=== PATIENT | male | born 1965 | race Caucasian/White ===

== ENCOUNTER 2017-05-03 21:41 | Emergency (ER) | payer OTHER ==
--- NOTE | ~2017-05-03 | CR112 ---
[facility] A Service of [facility] & [facility] RADIOLOGY TEXT RESULTS PATIENT: MANUEL SHER LOCATION: [facility] : 67 UNIT #: [id number] AGE: [address]: Christiano Baum MD SEX: M ORDER DR: [id number] [facility] [address] [place], [place] [address] [id number] E MR#: [id number] Acc #: [id number] NAME: MANUEL SHER : 1965 SEX: M STUDY DATE/TIME: 05/03/2017 22:49 UNIT: [facility] ROOM: STUDY DESCRIPTION: CR Finger 2 View 4Th Lt Attending Physician: Christiano Baum M.D. Ordering Physician: Christiano Baum M.D. Primary Care Physician: Primary Care Physician No MEDICAL IMAGING REPORT This report is preliminary unless electronic signature is present EXAM Left fourth finger 3 views 05/03/2017 HISTORY Left fourth finger pain and swelling, fingertip smashed by a piece of metal today. FINDINGS Three views of the left fourth finger demonstrate comminuted displaced fracture through the tuft of the fourth distal phalanx. No other fracture or dislocation is seen. The bones are normally mineralized. There is soft tissue swelling about the fracture. IMPRESSION Comminuted displaced fracture involving the tuft of the fourth distal phalanx. Dictated by... Michael Andersen M.D. THIS IS AN ELECTRONICALLY VERIFIED REPORT Michael Andersen M.D. at 05/04/2017 5:07 PM ALLAN/elliot TD: 05/04/2017 07:54 JOB #: [id number] MEDICAL IMAGING REPORT Page 1 of 1 COPY
== END 2017-05-04 01:09 | disposition home or self-care (01) ==
LOC: CED 21:41
DX: S62.635A Displaced fracture of distal phalanx of left ring finger, initial encounter for closed fracture (principal); Z88.0 Allergy status to penicillin; I10 Essential (primary) hypertension; W23.0XXA Caught, crushed, jammed, or pinched between moving objects, initial encounter; Y92.69 Other specified industrial and construction area as the place of occurrence of the external cause
CPT/HCPCS: 12001; 73140; 99283